=== PATIENT | female | born 1980 | race Caucasian/White ===

== ENCOUNTER 2016-11-27 10:01 | Emergency (ER) | payer BC ==
[~2016-11-27] VITALS: Ht 165.1 cm; Wt 59.0 kg
[~2016-11-27 10:01] MED LIST: FLON0.054; PERC5TAB6 PO; SPIR25TA2 PO; SUMA25TA3 PO
[2016-11-27] MEDS ORDERED: CITA20TA4 PO (10:17)
[2016-11-27] MEDS ORDERED: XANA0.5T PO (10:17)
[2016-11-27] MEDS ORDERED: VAGI10TA VA (10:17)
[2016-11-27 13:06] LABS: BASO # 0.1 K/mm3 (0.0-0.2); BASO % 1.1 % (0.0-1.0); EOS # 0.1 K/mm3 (0.0-0.50); EOS % 1.9 % (0.0-3.0); LARGE UNSTAINED CELL # 0.1 K/mm3 (0.0-0.4); LARGE UNSTAINED CELL % 2.5 % (0.0-4.0); LYMPH # 1.8 K/mm3 (1.5-4.5); LYMPH % 34.3 % (24.0-44.0); MEAN CORPUSCULAR HEMOGLOBIN 30.6 pg (27.0-33.0); MEAN CORPUSCULAR HGB CONC 33.4 g/dl (32.0-36.5); MEAN CORPUSCULAR VOLUME 91.6 fl (80.0-96.0); MONO # 0.3 K/mm3 (0.0-0.8); MONO % 6.5 % (0.0-5.0); NEUTROPHILS # 2.8 K/mm3 (1.8-7.7); NEUTROPHILS % 53.7 % (36.0-66.0); PLATELET COUNT, AUTOMATED 265 k/mm3 (150-450); RED CELL DISTRIBUTION WIDTH 13.2 % (11.5-14.5); WHITE BLOOD COUNT 5.3 K/mm3 (4.0-10.0)
[2016-11-27 13:45] LABS: ERYTHROCYTE SEDIMENTATION RATE 7 mm/hr (0-20)
[2016-11-27 14:03] LABS: ANION GAP 7 MEQ/L (8-16); BLOOD UREA NITROGEN 12 MG/DL (7-18); CALCIUM LEVEL 9.6 MG/DL (8.5-10.1); CARBON DIOXIDE LEVEL 29 MEQ/L (21-32); CHLORIDE LEVEL 105 MEQ/L (98-107); CREATININE FOR GFR 0.88 MG/DL (0.55-1.02); GLOMERULAR FILTRATION RATE > 60.0 (>60); GLUCOSE, FASTING 84 MG/DL (70-105); SODIUM LEVEL 141 MEQ/L (136-145)
--- NOTE | 2016-11-27 14:15 | REP ---
CHEST, TWO VIEWS: COMPARISON: 04/30/2016 There is no evidence of acute infiltrate. No pleural effusion is seen. The heart is normal in size. The mediastinal silhouette is unremarkable. The visualized osseous structures are intact. IMPRESSION: No acute pulmonary disease. Signed by Timo Smith MD 11/28/2016 07:04 P
[2016-11-27] MEDS ORDERED: KETOROLAC 30 MG/ML VIAL (J1885) IV ONE (15:00)
[2016-11-27] MEDS ORDERED: CYCL5TA PO (15:26)
[2016-11-27] MEDS ORDERED: IBUP-1114 PO (15:26)
[2016-11-27] MEDS ORDERED: CYCLOBENZAPRINE 10 MG TAB PO ONE (15:30)
[2016-11-27 15:31] VITALS: BP 136/79
--- NOTE | 2016-11-28 08:47 | ECGEPIP ---
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
== END 2016-11-27 15:36 | disposition home or self-care (01) ==
LOC: M ED 11:30
DX: M94.0 Chondrocostal junction syndrome [Tietze] (principal); J30.9 Allergic rhinitis, unspecified
CPT/HCPCS: 71020; 80048; 82550; 82553; 84443; 85025; 85652; 86140; 93005; 93041; 94760; 96374; 99285; J1885

== ENCOUNTER → 2017-02-26 | Outpatient (CLI) | payer BC ==
[~2017-02-26] MED LIST changes: +CITA20TA4 PO; +CYCL5TAB PO; +IBUP-1114 PO; +PERC5TAB12 PO; -PERC5TAB6 PO; +VAGI10TA VA; +XANA0.5T PO
[2017-02-26 17:59] LABS: BASO % 0.5 % (0.0-1.0); EOS % 0.6 % (0.0-3.0); LARGE UNSTAINED CELL # 0.1 K/mm3 (0.0-0.4); LARGE UNSTAINED CELL % 1.9 % (0.0-4.0); LYMPH # 2.1 K/mm3 (1.5-4.5); LYMPH % 30.1 % (24.0-44.0); MEAN CORPUSCULAR HEMOGLOBIN 30.8 pg (27.0-33.0); MEAN CORPUSCULAR HGB CONC 34.2 g/dl (32.0-36.5); MEAN CORPUSCULAR VOLUME 90.2 fl (80.0-96.0); MONO # 0.3 K/mm3 (0.0-0.8); MONO % 4.8 % (0.0-5.0); NEUTROPHILS # 4.4 K/mm3 (1.8-7.7); NEUTROPHILS % 62.1 % (36.0-66.0); PLATELET COUNT, AUTOMATED 246 k/mm3 (150-450); RED CELL DISTRIBUTION WIDTH 13.2 % (11.5-14.5)
[2017-02-26 18:18] LABS: ALBUMIN 4.4 GM/DL (3.2-5.2); ALBUMIN/GLOBULIN RATIO 1.29 (1.00-1.93); ALKALINE PHOSPHATASE 55 U/L (45-117); ALT/SGPT 21 U/L (12-78); ANION GAP 8 MEQ/L (8-16); AST/SGOT 9 U/L (15-37); BILIRUBIN,TOTAL 0.4 MG/DL (0.2-1.0); BLOOD UREA NITROGEN 14 MG/DL (7-18); CALCIUM LEVEL 9.6 MG/DL (8.5-10.1); CARBON DIOXIDE LEVEL 27 MEQ/L (21-32); CHLORIDE LEVEL 104 MEQ/L (98-107); CHOLESTEROL LEVEL 202 MG/DL (<200); CREATININE FOR GFR 0.89 MG/DL (0.55-1.02); GLOMERULAR FILTRATION RATE > 60.0 (>60); GLUCOSE, FASTING 90 MG/DL (70-105); POTASSIUM SERUM 4.2 MEQ/L (3.5-5.1); SODIUM LEVEL 139 MEQ/L (136-145); TOTAL PROTEIN 7.8 GM/DL (6.4-8.2); TRIGLYCERIDES LEVEL 136 MG/DL (<150)
== END ==
LOC: M WUC 15:35
PROVIDERS: ATTEND Nurse Practitioner Family
DX: F34.1 Dysthymic disorder (principal); Z13.220 Encounter for screening for lipoid disorders

== ENCOUNTER → 2017-02-26 | Outpatient (CLI) | payer BC ==
[2017-02-26 18:18] LABS: ALBUMIN 4.2 GM/DL (3.2-5.2); ALBUMIN/GLOBULIN RATIO 1.14 (1.00-1.93); ALKALINE PHOSPHATASE 52 U/L (45-117); ALT/SGPT 23 U/L (12-78); ANION GAP 11 MEQ/L (8-16); AST/SGOT 17 U/L (15-37); BILIRUBIN,TOTAL 0.4 MG/DL (0.2-1.0); BLOOD UREA NITROGEN 13 MG/DL (7-18); CALCIUM LEVEL 9.5 MG/DL (8.5-10.1); CARBON DIOXIDE LEVEL 23 MEQ/L (21-32); CHLORIDE LEVEL 106 MEQ/L (98-107); CREATININE FOR GFR 0.85 MG/DL (0.55-1.02); GLOMERULAR FILTRATION RATE > 60.0 (>60); GLUCOSE, FASTING 88 MG/DL (70-105); POTASSIUM SERUM 4.6 MEQ/L (3.5-5.1); SODIUM LEVEL 140 MEQ/L (136-145); TOTAL PROTEIN 7.9 GM/DL (6.4-8.2)
[2017-02-26 21:40] LABS: MEAN CORPUSCULAR HEMOGLOBIN 31.1 pg (27.0-33.0); MEAN CORPUSCULAR HGB CONC 34.4 g/dl (32.0-36.5); MEAN CORPUSCULAR VOLUME 90.5 fl (80.0-96.0); RED CELL DISTRIBUTION WIDTH 13.1 % (11.5-14.5); WHITE BLOOD COUNT 6.9 K/mm3 (4.0-10.0)
[2017-03-05 14:17] LABS: ANTI-SACCHAROMYCES CEREV. IgA 23.5 Units (0.0-24.9); ANTI-SACCHAROMYCES CEREV. IgG 27.2 Units (0.0-24.9)
== END ==
LOC: M WUC 15:22
PROVIDERS: ATTEND Internal Medicine Gastroenterology
DX: K52.9 Noninfective gastroenteritis and colitis, unspecified (principal); R19.4 Change in bowel habit

== ENCOUNTER → 2017-02-27 | Outpatient (REF) | payer BC | LOC: M LAB REF 10:58 | PROVIDERS: ATTEND Internal Medicine Gastroenterology | DX: R19.4 Change in bowel habit (principal) ==

== ENCOUNTER → 2017-09-17 | Outpatient (CLI) | payer BC ==
[2017-09-17 19:56] LABS: C REACTIVE PROTEIN QUANTITATIV < 0.30 MG/DL (0.00-0.30)
[2017-09-17 20:07] LABS: TOTAL 25(OH) VITAMIN D 53.3 NG/ML (30.0-100.0)
[2017-09-17 20:13] LABS: VITAMIN B12 LEVEL 716 PG/ML (247-911)
== END ==
LOC: M WUC 15:46
DX: R19.4 Change in bowel habit (principal); A04.72 Enterocolitis due to Clostridium difficile, not specified as recurrent; A09 Infectious gastroenteritis and colitis, unspecified; R14.3 Flatulence
CPT/HCPCS: 82607

== ENCOUNTER → 2017-09-19 | Outpatient (REF) | payer BC | LOC: M LAB REF 10:46 | DX: R19.4 Change in bowel habit (principal); A04.72 Enterocolitis due to Clostridium difficile, not specified as recurrent; A09 Infectious gastroenteritis and colitis, unspecified; R14.3 Flatulence | CPT/HCPCS: 83993 ==